=== PATIENT | female | born 1955 | race Caucasian/White ===

== ENCOUNTER → 2017-10-19 | Outpatient (CLI) | payer OTHER, SELFPAY ==
--- NOTE | 2017-10-23 09:15 | PM.TREADMILL ---
Cardiac Stress Test Report Referral & Results Date Patient Seen: 10/23/17 Time Patient Seen: 09:15 Requesting provider: Wes Lopez Indication: Hypertension Rest ECG: Unremarkable Procedure Note: After both written and verbal informed consent the patient had an IV started by the diagnostic imaging RN and then was hooked up to the treadmill monitoring system. The patient was placed on the treadmill at 1 mile an hour with no elevation and was then injected with the Shantel scan material. The Cardiolite was then immediately administered. The patient spent an additional 2-3 minutes on the treadmill before being returned to the [facility] in the supine position. The patient had a normal response to all infused materials. Patient experienced tingling and odd sensations in both arms and into her left neck and down the left side of her abdomen. These began to resolve prior to this is sedation of the monitoring portion of the test Otherwise patient had normal response to infuse materials Impression: Perfusion imaging to be reported separately, somewhat atypical symptoms produced by infusion of Lexiscan material but otherwise normal response to infuse materials. Please note: Actual ECG tracings can be found in the PACS system.
--- NOTE | 2017-10-23 16:45 | DI.NM.S_ITS ---
DATE OF SERVICE: 10/19/2017 ORDERING PROVIDER: Wes Lopez MD PROCEDURE PERFORMED: Vasodilator stress and rest myocardial perfusion imaging study with gating to assess ejection fraction and regional wall motion. INDICATIONS: The patient is a 62-year-old female with exertional dyspnea and edema. CARDIAC STRESS: Per protocol, 0.4 mg of regadenoson was infused, augmented by walking on the treadmill. With this, she had a normal hemodynamic response without any chest discomfort, although developed mild bilateral arm pain and left abdominal discomfort. Her resting ECG is normal and there are no ischemic changes or arrhythmias with stress. Per protocol, 25.7 mCi of technetium 99 Myoview was injected and the patient was imaged 15 minutes later using a gated SPECT acquisition protocol. Previously, the patient had been injected with 24.9 mCi of technetium 99 Myoview on 10/19/2017 and had been imaged 30 minutes after that injection. FINDINGS: 1. Raw Data: There is a fair amount of movement, particularly on the post stress which can introduce artifact. There were moderate breast shadows noted. The lung/heart ratio is normal at 0.37 with a normal TID ratio of .94. 2. Quantitative Gated SPECT: Post stress ejection fraction is estimated at 71% without any focal wall motion abnormality. Resting ejection fraction is 74% with an end-diastolic volume of 117 mL. 3. Myocardial Perfusion Imaging: Post stress supine images shows a fairly normal myocardial perfusion pattern was a very subtle defect at the base of the anterior wall, likely reflective of breast attenuation artifact. This appears to improve on the prone images. There are no other perfusion defects. The resting images shown identical perfusion pattern without any areas of improvement. CONCLUSION: 1. Probable normal myocardial perfusion study. 2. Mild fixed proximal anterior wall defect that essentially resolves on prone imaging, most consistent with breast attenuation artifact. There is no compelling evidence for myocardial ischemia or previous myocardial infarction. 3. Normal left ventricular systolic function without any focal wall motion abnormality. 4. Bilateral arm pain and abdominal discomfort with vasodilator stress but no angina or ECG evidence of ischemia. Krystal Wayne - PASTOR/sebastian/ doc#: [id number]/job#: [id number] dd: 10/23/2017 11:50:00 dt: 10/23/2017 16:32:00 DICTATING MD/COPIES TO: Raffi Deal MD; Wes Lopez MD COPIES MNE: SANA MEIER
== END ==
PROVIDERS: Family Provider Internal Medicine; PCP Internal Medicine; Visit Provider Internal Medicine
DX: I10 Essential (primary) hypertension (principal)
CPT/HCPCS: 78452; 93016; 93017; 93018; A9502; J2785

== ENCOUNTER → 2017-10-26 16:06 | Outpatient (CLI) | payer OTHER, SELFPAY ==
--- NOTE | 2017-10-26 | DI.CT.S_ITS ---
PROCEDURE: CT CHEST W CON INDICATIONS: COUGH TECHNIQUE: After the administration of intravenous contrast, 5 mm thick sections acquired from the pulmonary apices to the posterior costophrenic angles. 7 mm thick coronal and sagittal MIP reformats were acquired. For radiation dose reduction, the following was used: automated exposure control, adjustment of mA and/or kV according to patient size. COMPARISON: None. FINDINGS: Image quality: Excellent. Lungs and pleura: No acute air space opacities. No pleural effusions or pneumothorax. Central and peripheral airways are patent and normal in caliber. Mediastinum: Heart size is normal. No pericardial effusion. No mediastinal or hilar adenopathy by size criteria. Thoracic aorta and central pulmonary arteries are normal in size. Esophagus is normal in caliber. No hiatal hernia. Bones and chest wall: No suspicious bony lesions. No vertebral body compression fractures. No axillary or supraclavicular adenopathy by size criteria. Thyroid gland demonstrates multiple bilateral nodules, largest of which is in the right lobe measuring roughly 17 mm. Abdomen: Visualized upper abdominal solid organs appear normal. Upper abdominal bowel loops are normal in caliber. IMPRESSION: 1. No explanation for cough. 2. Bilateral thyroid nodules, which could be further assessed with ultrasound, if clinically indicated. Dictated by: Vanessa Pollock M.D. on 10/26/2017 at 16:41 Approved by: Vanessa Pollock M.D. on 10/26/2017 at 16:43
== END ==
PROVIDERS: Family Provider Internal Medicine; PCP Internal Medicine; Visit Provider Physician Assistant Medical
DX: R05 Cough (principal); E04.2 Nontoxic multinodular goiter
CPT/HCPCS: 71260; Q9967

== ENCOUNTER → 2017-11-06 16:06 | Outpatient (CLI) | payer OTHER, SELFPAY ==
--- NOTE | 2017-11-06 | DI.US.S_ITS ---
PROCEDURE: US THYROID INDICATIONS: MULTIPLE THYROID NODULES TECHNIQUE: Real-time scanning was performed of the thyroid gland, with image documentation. COMPARISON: None. FINDINGS: Right: Thyroid lobe measures 5.6 x 3.1 x 2.6 cm, and is homogeneous in echotexture. Left: Thyroid lobe measures 5.7 x 2.2 x 2.1 cm, and is homogenous in echotexture. Isthmus: 3.0 mm thick. Nodule number: 1 Location: Midright Size: 1.4 x 1.9 x 1.7 cm. Composition: Solid Echogenicity: Hypoechoic Shape: wider than tall. Margins: Smooth Echogenic foci: None Total points: 4 ACR TI-RADS category: Moderately suspicious Nodule number: 2 Location: Right mid Size: 1.4 x 1.3 x 1.2 cm. Composition: Predominantly solid Echogenicity: Hypoechoic Shape: wider than tall. Margins: Smooth Echogenic foci: Punctate echogenic foci. Total points: 7 ACR TI-RADS category: Highly suspicious Nodule number: 3 Location: Right inferior Size: 2.0 x 1.8 x 2.1 cm. Composition: Solid Echogenicity: Hypoechoic Shape: wider than tall. Margins: Smooth Echogenic foci: None Total points: 4 ACR TI-RADS category: Moderately suspicious Nodule number: 4 Location: Left mid Size: 1.3 x 1.6 x 1.7 cm. Composition: Solid Echogenicity: Hypoechoic Shape: wider than tall. Margins: Smooth Echogenic foci: Punctate echogenic foci Total points: 7 ACR TI-RADS category: Highly suspicious IMPRESSION: Bilateral thyroid nodules as above. Recommend sonographically directed fine needle aspiration involving the right # 2 nodule in the left # 4 nodule. Recommend continued followup as detailed below for the additional nodules. ACR TI-RADS definitions and recommendations: TI-RADS 1 (benign): 0 points. FNA not needed. TI-RADS 2 (not suspicious): 2 points. FNA not needed. TI-RADS 3 (mildly suspicious): 3 points. * FNA if 2.5 cm or larger, follow up if 1.5 cm or larger (at 1, 3, and 5 years). TI-RADS 4 (moderately suspicious): 4-6 points. * FNA if 1.5 cm or larger, follow up if 1 cm or larger (at 1, 2, 3, and 5 years). TI-RADS 5 (highly suspicious): 7 points or more. * FNA if 1 cm or larger, follow up if 0.5 cm or larger (every year for 5 years). Dictated by: Jack WOODS Interpreted: Billy Thompson MD on 11/06/2017 at 16:54 Approved by: Billy Thompson M.D. on 11/08/2017 at 11:53
== END ==
PROVIDERS: Family Provider Internal Medicine; PCP Internal Medicine; Visit Provider Physician Assistant Medical
DX: E04.2 Nontoxic multinodular goiter (principal)
CPT/HCPCS: 76536

== ENCOUNTER → 2017-11-13 13:51 | Outpatient (CLI) | payer OTHER, SELFPAY ==
--- NOTE | 2017-11-30 10:08 | PM.PFT.1 ---
Pulmonary Function Test Referral & Results Date Patient Seen: 11/13/17 Requesting provider: Mine Coker Indication: Cough Results: The spirometry demonstrates an FVC of 2.81 L which is 82% of predicted. The FEV1 was measured at 2.28 L which is 86% of predicted. The FEV1/FVC ratio was 81 which is 104% of predicted. Following the administration of bronchodilator there was no appreciable change. Lung volumes show an SVC of 3.06 L which is 97% of predicted. The diffusing capacity was measured at 25.37 which is 99% of predicted. Maximum voluntary ventilation was normal Interpretation: This study demonstrates potentially extremely mild obstructive lung disease based on minimal reduction an FEV 1 and slight concave shape to flow volume loop however this could also be interpreted as normal Clinical correlation suggested
== END ==
PROVIDERS: Family Provider Internal Medicine; PCP Internal Medicine; Visit Provider Physician Assistant Medical
DX: R05 Cough (principal)
CPT/HCPCS: 94010; 94060; 94726; 94729

== ENCOUNTER → 2017-11-26 14:04 | Outpatient (CLI) | payer OTHER, SELFPAY ==
--- NOTE | 2017-11-26 | PATH_ITS ---
Note [facility] Accession Number: [id number] TESTS RESULT FLAG UNITS REF RANGE LAB Clinician Provided Cytology Information No. of containers..01 ThinPrep Vial No. of containers..04 Previously Prepared Cytology Slide L THYROID NODULE DIAGNOSIS: 02 L THYROID NODULE NEGATIVE FOR MALIGNANT CELLS. SPECIMEN CONSISTS OF BENIGN FOLLICULAR CELLS, HEMOSIDERIN-LADEN MACROPHAGES, SCANT COLLOID AND BLOOD. THIS PATTERN IS CONSISTENT WITH AN ADENOMATOID NODULE. Pathologist ICD10: 02 E04.1 02 Lavelle Kruger MD, Pathologist NPI- [id number] Zafar Ruth, Yarn Skeins Examiner ([facility]) 01 30 CC, PINK, CLEAR Also received 2 alcohol fixed and 2 quick stained slides. /HKH FLAG LEGEND: L-Low Normal,H-High Normal,LL-Alert Low,HH-Alert High <-Panic Low,>-Panic High,A-Abnormal,AA-Critical Abnormal Performed at: 01 =Z [facility] [address], [place] [address] Kali Robison MD, 02 [facility] [address] [place] [id number] Vignesh Houston MD, Performed at: 01 [facility] [address], [place], [place] [id number] MD Kali Robison MD Phone: [phone]
--- NOTE | 2017-11-26 | DI.US.S_ITS ---
PROCEDURE: US FINE NEEDLE ASPIRATION INDICATIONS: BILATERAL THYROID NODULES TECHNIQUE: The indications, alternatives, benefits, risks, and complications of the procedure were explained to the patient. Written informed consent was obtained and placed in the chart. Real-time sonography was utilized to choose the site for percutaneous thyroid nodule sampling. The skin of the neck was prepped and draped in the usual sterile fashion. 1% lidocaine was infiltrated down to the site of interest. Serial hypodermic needles were then advanced into the site of interest under direct sonographic visualization, and serial needle aspirates were obtained. On site fire protection equipment technician confirmed the presence of adequate sample prior to procedure termination. The needles were then withdrawn; a bandage was applied to the procedure site. COMPARISON: [facility], [place], US THYROID, 11/06/2017, 16:15. FINDINGS: Sample site(s): Right mid thyroid lobe (labeled nodule #2 on comparison thyroid ultrasound of 11/06/17). Needle: 25 gauge. Number of passes: 6. Medications: 1% lidocaine for local anaesthesia. Complications: No further samples could be obtained due to patient discomfort and technical difficulty. Sample site(s): Left mid thyroid lobe (labeled nodule #4 on comparison thyroid ultrasound of 11/06/17). Needle: 25 gauge. Number of passes: 2. Medications: 1% lidocaine for local anaesthesia. Complications: No further samples could be obtained due to patient discomfort and technical difficulty. IMPRESSION: Successful ultrasound-guided bilateral thyroid nodule fine needle aspirations, with cytology results pending. Dictated by: Eddie Stewart M.D. on 11/26/2017 at 17:12 Approved by: Eddie Stewart M.D. on 11/26/2017 at 17:14
== END ==
PROVIDERS: Family Provider Internal Medicine; PCP Internal Medicine; Visit Provider Otolaryngology Facial Plastic Surgery
DX: E04.2 Nontoxic multinodular goiter (principal)
CPT/HCPCS: 10022; 76942

== ENCOUNTER → 2017-12-19 14:58 | Outpatient (CLI) | payer OTHER, SELFPAY ==
[2017-12-19 16:54] LABS: Add Manual Diff / Slide Review NO; Basophils Percent Auto 0.7 % (0-2); Eosinophils Percent Auto 1.6 % (2-4); Hematocrit 40.5 % (36-46); Hemoglobin 13.1 g/dL (12.0-16.0); Lymphocytes Percent Auto 20.2 % (25-40); Mean Corpuscular HGB Conc 32.4 % (30-36); Mean Corpuscular Hemoglobin 28.2 PG (26-34); Mean Corpuscular Volume 87.3 fL (80-100); Monocytes Percent Auto 7.8 % (3-14); Neutrophils Absolute Auto 5800 /uL (3000-5900); Neutrophils Percent Auto 69.7 % (50-75); Platelet Count 327 X10^3/uL (150-400); Red Blood Cell Count 4.64 X10^6/uL (4.0-5.2); White Blood Cell Count 8.3 X10^3/uL (4.5-11.0)
[2017-12-19 17:12] LABS: Carbon Dioxide 26 mmol/L (22-32); Chloride 105 mmol/L (98-107); HEMOLYSIS < 15 (0-50); Sodium 144 mmol/L (137-145)
== END ==
PROVIDERS: PCP Internal Medicine; Visit Provider Orthopaedic Surgery
DX: Z01.818 Encounter for other preprocedural examination (principal)
CPT/HCPCS: 36415; 80051; 85025

== ENCOUNTER 2018-01-11 06:07 | Inpatient (IN) | payer OTHER, SELFPAY ==
[2017-12-24 08:38] VITALS: BMI 43.9
[2018-01-11] VITALS (16 sets, daily range): BP systolic 101–163; BP diastolic 51–75; PULSE 52–90; RESP 11–27; TEMP 35.9–37.2; O2SAT 2–98; BMI 43.7
--- NOTE | 2018-01-11 06:48 | DI.RAD.S_ITS ---
PROCEDURE: XR KNEE RT 1TO2V INDICATIONS: post op TECHNIQUE: 2 view(s) of the knee acquired. COMPARISON: None. FINDINGS: Bones: Patient is status post knee joint arthroplasty. Hardware components are in expected positions. Visualized bony structures are intact. Soft tissues: Overlying postoperative changes are noted. IMPRESSION: Post surgical changes from right total knee arthroplasty with anatomic right knee alignment. Dictated by: Reyes Jose M.D. on 01/11/2018 at 10:36 Approved by: Reyes Jose M.D. on 01/11/2018 at 10:41
[2018-01-11] MEDS: PREGABALIN 75 MG CAPSULE PO (07:11)
[2018-01-11] MEDS: ACETAMINOPHEN 325 MG TABLET 975 MG PO ×3 (07:11→21:54)
[2018-01-11] MEDS: CELECOXIB 200 MG CAPSULE PO (07:11)
[2018-01-11] MEDS: DEXAMETHASONE 10 MG/ML VIAL 8 MG IV (07:45)
[2018-01-11] MEDS: ONDANSETRON 4 MG/2 ML INJ IV ×2 (07:45→15:35)
[2018-01-11] MEDS: LACTATED RINGERS 1,000 ML 42 ML IV (07:46)
[2018-01-11] MEDS: CEFAZOLIN 2 GM/100 ML FROZ.PIGGY IV ×3 (07:52→23:53)
--- NOTE | 2018-01-11 07:56 | PM.PREOP ---
Pre-operative Note Interval Note Pre-op Check: Yes History & Physical Reviewed by Physician and Yes Exam Performed Changes: No
--- NOTE | 2018-01-11 07:59 | P.OP_ITS ---
Operative Date/Time/Diagnoses Date of procedure: 01/11/18 Time of procedure: 09:32 Pre-op diagnosis: Right knee osteoarthritis Post-op diagnosis: same Procedure & Clinicians Procedure: Right total knee arthroplasty Same procedure as scheduled: Yes Indications: The patient presents today for total knee arthroplasty after failure of conservative treatment. The nature of the procedure including the risks and benefits, alternatives, postoperative course and expected outcome were discussed and all questions answered. Consent was obtained. Operative site confirmed and marked. Surgeon: Kali Borges Track Repair Worker: Mayra Anderson Anesthesia Type: General Operative Notes Findings: Severe osteoarthritis with varus alignment Closure Type: primary Specimen(s): none sent Implants & Drains: [employer] BCS: 5 femoral component, 4 tibial component, 10 mm BCS polyethylene tray and 35 mm x 9 mm round patella Applied: implant(s) Estimated Blood Loss (mL): 50 Blood products transfused: none Tourniquet time (min): 25 Procedure in detail: The patient was taken to the operative suite and placed under anesthesia. The patient was given prophylactic antibiotics prior to surgery. The patient was also given tranexamic acid, 1 g, just prior to surgery for postoperative hemostasis. The lateral knee was prepped and the joint injected with 20 mL of 1% Lidocaine with epinephrine. The knee was then prepped and draped in usual sterile fashion. The leg was exsanguinated with an Esmarch dressing and the tourniquet raised to 300 torr. A 15 cm anterior incision was made. Next a medial trivector arthrotomy was made. The extensor mechanism was marked to ensure accurate repair. Initial exposing dissection was carried out medially and laterally. The knee was then extended and the patellar thickness was measured and a cut made removing approximately 9 mm of bone with a goal of restoring normal patellar thickness. The patella was then sized and drilled. Some excess lateral bone was excised and the patellofemoral ligament released. The tourniquet was then released. The knee was then flexed and the [employer] femoral guide was placed. The anterior pins were placed and the distal rotation holes drilled. The distal cutting guide was placed and the templated distal femoral cut was made. The templating cutting block was then placed and the anterior, posterior and chamfer cuts made. The [employer] tibial guide was placed and the alignment checked along the axis of the proximal tibial with a reed. The proximal tibial cut was then made with an oscillating saw. All meniscus and bony debris was then removed. Flexion extension gaps were checked. There is still some medial tightness both in flexion and extension. This was corrected with percutaneous release of the MCL with an 18 gauge needle. The soft tissues were then injected with a combination of 20 mL of half percent Marcaine with epinephrine and 20 mL of Exparel. The trial components were then placed. The knee went into full extension and flexion beyond 120?. There was excellent medial- lateral balance throughout motion. Patellar tracking was excellent. The trial components were removed and size is confirmed for the final implants. The knee was then exsanguinated with an Esmarch dressing and the tourniquet reapplied for cementing. The knee was cleansed with Pulsavac irrigation and dried. The final components were cemented in with high viscosity vacuum mixed bone cement with antibiotics. The knee was held in extension and the patellar clamp until the cement had adequately cured. The knee was then irrigated with dilute Betadine solution. The extensor mechanism was closed with 5 interrupted #1 Vicryl sutures in 90 degrees of flexion. The joint was then injected with a combination of 1 g of tranexamic acid and 20 mL of quarter percent Marcaine with epinephrine. The subcutaneous tissue was closed with 2-0 Vicryl. The skin was closed with amrit and surgical adhesive. Aquacel dressing and Graham wrap were then applied. Complications: none Condition: stable Disposition: PACU Plan for aftercare: formerly [facility] protocol
--- NOTE | 2018-01-11 08:25 | SUR.OPER ---
Supine on padded OR bed. Pillow under head, arms secured on padded armboards <90 degree abduction. Safety belt across torso. Non-operative leg secured with tape over blanket over lower leg. Operative leg secured in [employer]/[place] positioner. Foam padded brace at thigh of operative leg.
[2018-01-11] MEDS: BUPIVACAINE 0.25% W/ EPI VIAL 50 ML INJ (08:33)
[2018-01-11] MEDS: BUPIVACAINE LIPOSOME 266 MG/20 ML VIAL INJ (08:34)
[2018-01-11] MEDS: POVIDONE-IODINE 15 ML, SODIUM CHLORIDE 0.9% 250 ML TOP (08:35)
[2018-01-11] MEDS: LIDOCAINE 1% W/EPI INJ 20 ML INJ (08:35)
--- NOTE | 2018-01-11 10:22 | SUR.PHASEI ---
Dr. Cortez notified, pt c/o sore throat, ok to give Cepacol lozenge. Also, discussed pt c/o chest pressure/pain in middle of sternum, mild dizziness. Denied nausea. VS stable. No other new orders.
[2018-01-11] MEDS: BENZOCAINE/MENTHOL 1 LOZ PKT 1 EACH PO (10:24)
--- NOTE | 2018-01-11 10:35 | SUR.PHASEI ---
Pt sitting up, feeding self ice. Reported normal bp range is 120s.
--- NOTE | 2018-01-11 10:55 | SUR.PHASEI ---
Called report to SAMANTHA Lincoln, but receiving nurse not available at this time. Pt denied pain in knee. Reported throat and mid chest pressure improving.
--- NOTE | 2018-01-11 11:17 | SUR.PHASEI ---
Pt transferred to the floor. Report to SAMANTHA Parker. VS stable. IV saline locked. Rt knee drsg cdi. Pt able to move rt leg slightly. Belongings bag and glasses/case with patient.
[2018-01-11] MEDS: LACTATED RINGERS 1,000 ML 125 ML IV ×2 (12:06→19:42)
[2018-01-11] MEDS: OXYCODONE IR 5 MG TABLET PO (13:05)
[2018-01-11] MEDS: HYDROMORPHONE 0.5 MG INJ IV (13:38)
--- NOTE | 2018-01-11 14:45 | PT.IIE ---
Current Diagnoses Pneumonia, unspecified organism (01/11/18) Chronic obstructive pulmonary disease, unspecified (01/11/18) Unilateral primary osteoarthritis, right knee (01/11/18) Personal history of other diseases of the respiratory system (01/11/18) Surgery Performed Operation Date: 01/11/18 07:45 Actual Procedures p Total Knee Arthroplasty(Right) - Kali Borges MD Surgical History (Last Updated 12/24/17 @ 09:32 by Shira Burrell, RN) H/O: (Acute) History of colonoscopy (Acute) History of esophagogastroduodenoscopy (EGD) (Acute) Medical History (Last Updated 12/31/17 @ 13:06 by Shira Burrell, RN) Barretts esophagus (Acute ~2001) Degenerative arthritis of right knee (Acute) Diastolic dysfunction (Acute ~03/08/15) Edema (Acute) GERD (gastroesophageal reflux disease) (Acute) Glaucoma (Acute) Hiatal hernia (Acute) History of anxiety (Acute) History of bronchitis (Acute) History of depression (Acute) History of migraine headaches (Acute) History of viral meningitis (Acute) Obstructive lung disease (Acute) PNA (pneumonia) (Acute ~2009) Postmenopausal (Acute) Thyroid nodule (Acute) Valvular heart disease (Acute) Physical Therapy Inpatient Evaluation/Re-Eval M1 PT/OT-IP Prior Functional Status Start: 01/11/18 16:59 Freq: NEEDED Status: Active Protocol: Document 01/11/18 14:45 AB (Rec: 01/11/18 17:20 AB [id number]) Medical Review Prior Functional Status Medical History Reviewed Yes Communication able to make needs known Mobility and Gait pt stated that she is independent with all mobilities and ambualtion without AD Social History Household Members spouse family other Living Arrangements House Number of Floors (Floors) Two Floors Number of Stairs To Enter/Railing? pt lives in a 2 level house with 1 flight of steps with bilateral rails to enter but pt will stay at her friends house ~ 2 days upon d/c before going back to her house and friend's house is one level without steps to enter. 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 PT-IP Current Condition Start: 01/11/18 16:59 Freq: NEEDED Status: Active Protocol: Document 01/11/18 14:45 AB (Rec: 01/11/18 17:20 AB [id number]) Physical Therapy Current Condition Current Condition Evaluation Date 01/11/18 Treatment Diagnosis s/p R TKA Onset Date 01/11/18 Weight Bearing Status Weight Bearing Status Weight Bear as Tolerated M3 PT-IP Subjective Start: 01/11/18 16:59 Freq: NEEDED Status: Active Protocol: Document 01/11/18 14:45 AB (Rec: 01/11/18 17:20 AB [id number]) Subjective Physical Therapy Visit Type Type Initial Evaluation Visit Start Time 14:45 Visit Stop Time 15:39 Total Visit Minutes 54 Number of DBA Visits 0 Physical Therapy Visit Comments Patient Comments pt agreeable to get up Therapy Pain Assessment Pain When Pain Assessed At Rest Pain Present Pain Present Pain Reported Location Rt Knee Intensity 1 Scale Used Numeric (1 - 10) Pain Management Techniques Apply Cold Re-positioning Timing of Activity with Medications M4 PT-IP Mobility and Gait Start: 01/11/18 16:59 Freq: NEEDED Status: Active Protocol: Document 01/11/18 14:45 AB (Rec: 01/11/18 17:20 AB [id number]) PT-Bed Mobility Assessment Supine to Sit Supine to Sit Standby Assistance Scooting Scooting to Edge of Bed Standby Assistance PT-Transfer Assessment Sit to and From Stand Sit to and from Stand Moderate Assistance 1 Person Assistance Use of Upper Extremities Equipment Transfer Assistive Device Gait Belt Front Wheeled Walker Orthotic/Prosthetic Devices or Brace: No Transfers Transfer Technique pt ambulated to the toilet using FWW Transfer Ability Level of Assist Moderate Assistance 1 Person Assistance Comments Mobility Comments BP in supine: 124/56 . pt sat on EOB requiring SBA. c/o nausea. BP: 136/104. pt requesting to use the toilet and completed sit to stand mod A and cues. pt requires cues for R quad activation and steadiness. pt ambulated to the toilet using FWW mod A and cues with slight R knee buckling. pt required mod A for controlled descent to the toilet. pt complete sit to stand from the toilet using grab bar mod A and cues and ambulated towards the chair. continues to c/o nausea. nurse informed. BP sitting on chair: 138/77. Pt positioned in chair. ice pack provided. call light and table placed within reach. Gait Assessment Gait Gait Assistance Required: Moderate Assistance 1 Person Assist Distance (Feet) 10 Able to Maintain Weight Bearing Status Yes During Gait Assistive Devices Assistive Device Gait Belt Front Wheeled Walker Orthotic/Prosthetic Devices or Brace: No Gait Deviations General Gait Pattern Antalgic Decreased Stride Length Decreased Feet Clearance Factors Limiting Gait Function Factors Limiting Gait Function Decreased Activity Tolerance Decreased Strength Limited Range of Motion Pain Poor Balance Poor Safety Awareness PT-Balance Assessment Sitting Balance and Reactions Static Sitting Balance Ability Good Dynamic Sitting Balance Ability Good Standing Balance and Reactions Static Standing Balance Ability Fair Dynamic Standing Balance Ability Poor Device Used FWW M5 PT-IP Objective Assessments Start: 01/11/18 16:59 Freq: NEEDED Status: Active Protocol: Document 01/11/18 14:45 AB (Rec: 01/11/18 17:20 AB [id number]) Orientation Orientation/Cognition Level of Alertness Alert Orientation Name Age Birthday Month Date Year Day of Week Place Situation Safety Awareness Understands Safety Issues Gross Range of Motion Lower Extremity ROM Assessment Right Impaired Impairments PROM R knee flexion: ~ 60 deg Strength Lower Extremity Strength Assessment Right Impaired Hip 4+/5 Knee 3+/5 Sensation Assessment Sensation Gross Sensation WNL M6 PT-IP Treatment Start: 01/11/18 16:59 Freq: NEEDED Status: Active Protocol: Document 01/11/18 14:45 AB (Rec: 01/11/18 17:20 AB [id number]) Physical Therapy Treatment Exercises Exercises Quad Sets Heel Slides Education Education Provided Precautions Weight Bearing Status Post-Op Packet Safety M7 PT-IP Assessment and Plan Start: 01/11/18 16:59 Freq: NEEDED Status: Active Protocol: Document 01/11/18 14:45 AB (Rec: 01/11/18 17:20 AB [id number]) PT Summary Assessment and Plan Potential Rehabilitation Potential Good Status of Condition at Evaluation Evolving Summary Impairments Pain ROM Strength Balance Coordination Sensation Tone Cognition Bed Mobility Transfers Gait Activity Tolerance Assessment Summary pt requiring mod A with mobility and d/c plan depending on progress and assistance at home. pt plans to go home and family to assist. caregiver training will be conducted when appropriate. will continue to assess. Goals Bed Mobility Goal Independent Transfer Goal Standby Assistance Front Wheeled Walker Gait Goal Standby Assistance Front Wheel Walker Gait Distance 150 Other Goals up/down 12 steps bilateral rails CGA Days to Meet Goals 3 Frequency of Treatment Frequency Of Treatment Twice a Day Treatment Plan Physical Therapy Treatment Plan Bed Mobility Training Transfer Training Gait Training Therapeutic Exercise Balance Retraining Post Op Education Discharge Planning Hot or Cold Pack Neuromuscular Re-ed Coordination Retraining Manual Therapy Other Recommendations and Next Treatment ambulation, stair climbing Focus Recommendations To Nursing Amount of Assist Needed 1 Person Assist Discharge Recommendations PT Discharge Recommendations Home with Assistance Outpatient PT
[2018-01-11] MEDS: IBUPROFEN 600 MG TABLET PO ×2 (14:50→23:59)
[2018-01-11] MEDS: hydrOXYzine pamoate 25 MG CAPSULE PO ×2 (16:18→22:18)
[2018-01-11] MEDS: OXYCODONE IR 10 MG TABLET PO ×3 (16:18→22:18)
--- NOTE | 2018-01-11 16:18 | PC.NURSE ---
DAy Shift- Pt arrived to unit at 1110 via bed. Pt A&OX4, oriented to call light and post op routines, pt and family at bedside asking if she will be discharged tonight. Wire Threader explained that she would be staying the night and discharge tomorrow after working with PT and meeting discharge criteria. Pt has numbness to BLE upon arrival, unable to flex at ankles or wiggle toes, able to bend at knee. Numbness slowly resolved and pain increased from 1-4/10. Prn oxycodone given at 1305. Pt had additional increase in pain and Dilaudid IV prn given at 1340 with good effect. Pt had intermittent cramping to right leg that became quite intense. 's office called and spoke with the die stamping press operator kermit Fiore'samara.
[2018-01-11] MEDS: LATANOPROST 0.005% OPHTH 2.5 ML 1 DROPS EYE-BOTH (21:52)
[2018-01-11] MEDS: ASPIRIN EC 81 MG TABLET PO (21:54)
[2018-01-12 00:54] VITALS: BP 133/68; PULSE 62; RESP 17; TEMP 36.9; O2SAT 97
[2018-01-12] MEDS: OXYCODONE IR 10 MG TABLET PO ×2 (03:26→07:56)
[2018-01-12 03:30] VITALS: BP 134/57; PULSE 60; RESP 20; TEMP 36.6; O2SAT 96
[2018-01-12 06:09] LABS: Hematocrit 32.6 % (36-46); Hemoglobin 10.8 g/dL (12.0-16.0)
--- NOTE | 2018-01-12 07:54 | PM.DS.1 ---
History of Present Illness Date Patient Seen: 01/12/18 Time Patient Seen: 07:36 Chief complaint: [id number] Narrative: Patient seen bedside s/p R. TKA POD #1. Patient is doing well, she is up ambulating to the bathroom and her pain is controlled. She would like to go home today. She will be staying with her sister for the first few days. She denies CP, SOB, calf pain, and N/V. Muscle cramps that patient was having yesterday have improved with the increased dose of Vistaril. Discharge Providers Date of admission: 01/11/18 06:07 Primary care physician: Wes Lopez MD Consults: 01/11/18 11:14 Consult to Discharge Planning Routine Comment: Consult to Physical Therapy Evaluate & Treat Comment: Physician Instructions: postop TKA protocol Consult to Respiratory Therapy Evaluate & Treat Comment: Physician Instructions: Evaluate and treat Discharge provider: Madhavi Montalvo PA-C Discharge Date: 01/12/18 Exam Vital Signs (past 8 hours): - 01/12/18 00:54 01/12/18 03:30 Temperature 98.4 F 97.9 F Pulse Rate 62 60 Respiratory Rate 17 20 Blood Pressure 133/68 134/57 L Pulse Oximetry 97 96 Oxygen Delivery Method Room Air Oxygen Flow Rate 0 Narrative Exam Narrative: WDWN NAD A&OX3. Dressing CDI, minimal redness/saturation. NVI in RLE. Calves are soft and compressible. Ambulating well with walker. Objective Labs Result Diagrams: 01/12/18 05:44 Labs: Laboratory Results - last 24 hr 01/12/18 05:44 Hgb 10.8 L Hct 32.6 L Discharge Plan Discharge Plan Patient Disposition: Home Discharge Med Rec/Prescriptions Prescriptions: New acetaminophen 325 mg Tablet 975 mg PO TID Qty: 0 RF: 0 aspirin 81 mg Tablet,Delayed Release (Dr/Ec) 81 mg PO BID Qty: 0 RF: 0 oxycodone 5 mg Tablet 5 mg PO Q3HR PRN (Reason: Pain, Moderate (4-6)) Qty: 0 RF: 0 hydroxyzine pamoate 25 mg Capsule 50 mg PO Q6HR PRN (Reason: Nausea) Qty: 0 RF: 0 Continue furosemide [Lasix] 20 MG tablet 40 mg PO QDAY Qty: 0 RF: 0 metoprolol succinate [Toprol XL] 25 MG tablet extended release 24 hr 12.5 mg PO QDAY Qty: 0 RF: 0 omeprazole 20 mg Capsule,Delayed Release(Dr/Ec) 20 mg PO DAILY RF: 0 cholecalciferol (vitamin D3) [Vitamin D3] 2,000 unit Capsule 6,000 unit PO DAILY RF: 0 latanoprost 0.005 % Drops 1 drp EYE-BOTH BEDTIME RF: 0 Follow up/Referrals: Kali Borges MD [Physician] - 01/18/18 2:00 pm (Appointment with Mayra Anderson PA-C at the [employer] [facility] office.) Provider Discharge Instructions Diet: Diet as Tolerated Activity: Weightbearing as tolerated, use walker until cleared by PT Cold/Heat Therapy: Apply ice to surgical area 20 minutes at a time at least hourly while awake. Skin/Wound/Dressing Care Report to your healthcare provider any signs of infection, such as:: chills, fever, night sweats, increased pain and unusual drainage Dressing: May remove Graham Wrap second day after surgery. Keep Aquacel dressing on until 2nd post-op visit. Visit Report/Discharge Packet Instructions: DI for Knee Replacement Discharge Data Primary Care Provider: Wes Lopez Attending Provider: Kali Borges Admit Date/Time: 01/11/18 06:07 Quality VTE Deep Vein Thrombosis/Pulmonary Embolism Present on Admission: No
[2018-01-12] MEDS: ACETAMINOPHEN 325 MG TABLET 975 MG PO (07:56)
[2018-01-12] MEDS: ASPIRIN EC 81 MG TABLET PO (07:57)
[2018-01-12] MEDS: FUROSEMIDE 20 MG TABLET 40 MG PO (07:57)
[2018-01-12 08:10] VITALS: BP 135/72; PULSE 54; RESP 20; TEMP 36.7; O2SAT 96
[2018-01-12] MEDS: hydrOXYzine pamoate 25 MG CAPSULE PO (08:16)
--- NOTE | 2018-01-12 10:09 | PC.NURSE ---
Aquacel with ANGELA wrap in place to right knee. Ice prn in place. Up to chair and BSC with 1 assist and walker. Tolerating well. Plan for P.T. this morning, patient staying at a family members house upon discharge that does not have stairs. Patient pleasant and talkative. Complaining of feeling quite sleepy after taking her medications this morning. Will continue to monitor, call light within reaceh.
--- NOTE | 2018-01-12 10:50 | PT.IPTN ---
Current Diagnoses Pneumonia, unspecified organism (01/11/18) Chronic obstructive pulmonary disease, unspecified (01/11/18) Unilateral primary osteoarthritis, right knee (01/11/18) Personal history of other diseases of the respiratory system (01/11/18) Surgery Performed Operation Date: 01/11/18 07:45 Actual Procedures p Total Knee Arthroplasty(Right) - Kali Borges MD Physical Therapy Treatment Note M2 PT-IP Current Condition Start: 01/11/18 16:59 Freq: NEEDED Status: Active Protocol: Document 01/11/18 14:45 AB (Rec: 01/11/18 17:20 AB [id number]) Physical Therapy Current Condition Current Condition Evaluation Date 01/11/18 Treatment Diagnosis s/p R TKA Onset Date 01/11/18 Weight Bearing Status Weight Bearing Status Weight Bear as Tolerated M3 PT-IP Subjective Start: 01/11/18 16:59 Freq: NEEDED Status: Active Protocol: Document 01/12/18 10:45 GGD (Rec: 01/12/18 12:15 GGD [email or web address]) Subjective Physical Therapy Visit Type Type Treatment Note Visit Start Time 10:05 Visit Stop Time 10:45 Total Visit Minutes 40 Number of PIPE PROCESSOR Visits 1 Physical Therapy Visit Comments Patient Comments Pt states she would like to try the stairs, but not need to use stair at D/C. Therapy Pain Assessment Pain When Pain Assessed At Rest Pain Present Pain Present Pain Reported Location Rt Knee Intensity 6 Scale Used Numeric (1 - 10) Pain Management Techniques Apply Cold M4 PT-IP Mobility and Gait Start: 01/11/18 16:59 Freq: NEEDED Status: Active Protocol: Document 01/12/18 10:45 GGD (Rec: 01/12/18 12:15 GGD [email or web address]) PT-Transfer Assessment Sit to and From Stand Sit to and from Stand Contact Guard Assistance Use of Upper Extremities Equipment Transfer Assistive Device Gait Belt Front Wheeled Walker Orthotic/Prosthetic Devices or Brace: No Transfers Transfer Destination Chair Wheelchair Transfer Ability Level of Assist Minimal Assistance Use of Upper Extremities Gait Assessment Gait Gait Assistance Required: Contact Guard Assist Distance (Feet) 60 Able to Maintain Weight Bearing Status Yes During Gait Assistive Devices Assistive Device Gait Belt Front Wheeled Walker Orthotic/Prosthetic Devices or Brace: No Gait Deviations General Gait Pattern Antalgic Decreased Stride Length Decreased Feet Clearance Factors Limiting Gait Function Factors Limiting Gait Function Decreased Activity Tolerance Decreased Strength Limited Range of Motion Pain Poor Balance Poor Safety Awareness Comments Gait Comments Pt need min cues for gait with FWW. Stair Climbing Assessment Comments Stair Climbing Comments trial of stairs, pt unable to tolerate right LE weight bearing due to pain. M5 PT-IP Objective Assessments Start: 01/11/18 16:59 Freq: NEEDED Status: Active Protocol: Document 01/11/18 14:45 AB (Rec: 01/11/18 17:20 AB [id number]) Orientation Orientation/Cognition Level of Alertness Alert Orientation Name Age Birthday Month Date Year Day of Week Place Situation Safety Awareness Understands Safety Issues Gross Range of Motion Lower Extremity ROM Assessment Right Impaired Impairments PROM R knee flexion: ~ 60 deg Strength Lower Extremity Strength Assessment Right Impaired Hip 4+/5 Knee 3+/5 Sensation Assessment Sensation Gross Sensation WNL M6 PT-IP Treatment Start: 01/11/18 16:59 Freq: NEEDED Status: Active Protocol: Document 01/12/18 10:45 GGD (Rec: 01/12/18 12:15 GGD [email or web address]) Physical Therapy Treatment Exercises Exercises Quad Sets Short Arc Quads Seated Knee Flexion/Extension Education Education Provided Weight Bearing Status Safety M7 PT-IP Assessment and Plan Start: 01/11/18 16:59 Freq: NEEDED Status: Active Protocol: Document 01/12/18 10:45 GGD (Rec: 01/12/18 12:15 GGD [email or web address]) PT Summary Assessment and Plan Summary Assessment Summary Pt improving with mobility. She was able to progress gait and improved with sit to stand . She had heavy use of UE on FWW with gait and poor tolerance to weight bearing. She was unable to tolerate weight bearing for stair mobility. Frequency of Treatment Frequency Of Treatment Twice a Day Treatment Plan Other Recommendations and Next Treatment ambulation, stair climbing Focus Recommendations To Nursing Amount of Assist Needed 1 Person Assist Discharge Recommendations PT Discharge Recommendations Home with Assistance Outpatient PT
[2018-01-12] MEDS: OXYCODONE IR 5 MG TABLET PO (12:05)
--- NOTE | 2018-01-12 12:22 | PC.NURSE ---
Discharge instructions and home care handout reviewed. Patient medicated prior to discharge for pain. Patient has ortho follow up scheduled. Instructed to call [facility] office with any questions or concerns. Escorted out via wheelchair by COMMUNITY SERVICE WORKER with all belongings.
== END 2018-01-12 12:23 | disposition home or self-care (01) | DRG 470 ==
PROVIDERS: Admitting Provider Orthopaedic Surgery; Family Provider Internal Medicine; PCP Internal Medicine; Visit Provider Orthopaedic Surgery
PROC: 0SRC0JZ Replacement of Right Knee Joint with Synthetic Substitute, Open Approach (ICD-10-PCS; CPT 27447; principal; 2018-01-11 07:45)
DX: M17.11 Unilateral primary osteoarthritis, right knee (principal); Z68.41 Body mass index [BMI] 40.0-44.9, adult; E66.9 Obesity, unspecified; R60.0 Localized edema
CPT/HCPCS: 36415; 73560; 85014; 85018; 97110; 97116; 97162; 97530; C1776; C9290; J0690; J1100; J1170; J2250; J2405; J2704

== ENCOUNTER → 2018-01-18 15:18 | Outpatient (CLI) | payer OTHER, SELFPAY ==
[2018-01-11 14:53] VITALS: BMI 43.7
--- NOTE | 2018-01-18 | DI.US.S_ITS ---
PROCEDURE: US PERIPH VENOUS LOW EXTREM RT INDICATIONS: RIGHT CALF SWELLING TECHNIQUE: Real-time imaging, as well as color and pulse Doppler interrogation, were performed of the lower extremity deep veins from the inguinal ligament to the popliteal fossa. COMPARISON: None. FINDINGS: The deep veins are normally compressible, and free of intraluminal thrombus. Color and pulse Doppler demonstrate normal phasic intraluminal flow. There is normal augmentation response to distal compression maneuver. IMPRESSION: No evidence of deep vein thrombosis of the right lower extremity. Dictated by: Junior Flores M.D. on 01/18/2018 at 15:30 Approved by: Junior Flores M.D. on 01/18/2018 at 15:30
== END ==
PROVIDERS: Family Provider Internal Medicine; PCP Internal Medicine; Visit Provider Orthopaedic Surgery
DX: M79.89 Other specified soft tissue disorders (principal)
CPT/HCPCS: 93971

== ENCOUNTER → 2023-01-03 13:05 | Outpatient (CLI) | payer OTHER, SELFPAY ==
[2018-01-11 14:53] VITALS: BMI 43.7
--- NOTE | 2023-01-03 13:08 | DI.MG.S_ITS ---
BILATERAL DIGITAL SCREENING MAMMOGRAM 3D/2D WITH CAD: 01/03/2023 CLINICAL: Routine screening. Family history of breast cancer. Comparison is made to exams dated: 03/01/2020 mammogram, 10/15/2018 mammogram, and 03/21/2017 mammogram - Outside facility. Both breasts are heterogeneously dense, which may obscure small masses (category c / 51-75% glandular tissue). Current study was also evaluated with a Computer Aided Detection (CAD) system. There is a possible developing asymmetry in the right breast middle depth superior region seen on the mediolateral oblique view only. No other significant masses, calcifications, or other findings are seen in either breast. IMPRESSION: INCOMPLETE: NEEDS ADDITIONAL IMAGING EVALUATION The possible developing asymmetry in the right breast is indeterminate. Additional views with possible ultrasound are recommended. Based on Tyrer-Cuzick model (a risk assessment model), the patient's lifetime risk is 23.7% and her 10 year risk is 12.0%. If a patient has an elevated risk, a more comprehensive evaluation should be considered and/or a referral to a genetic counselor. The [place] [employer], [place] [employer], and NCCN Guidelines advise the consideration of Breast MRI as an adjunct to screening mammography in patients whose Lifetime risk to develop breast cancer is 20% or higher. This exam was interpreted at Station ID: [id number]. NOTE: For mammograms, a report in lay terms will be sent to the patient. Approximately 15% of breast malignancies will not be visualized mammographically. In the management of a palpable breast mass, a negative mammogram must not discourage biopsy of a clinically suspicious lesion. Electronically Signed By: Kris Saxena M.D. slc/:01/04/2023 07:52:29 letter sent: Additional Imaging Needed ACR BI-RADS Category 0: Incomplete 3340F
== END ==
PROVIDERS: Family Provider Internal Medicine; PCP Nurse Practitioner Family; Referring Provider Nurse Practitioner Family; Visit Provider Nurse Practitioner Family
DX: Z12.31 Encounter for screening mammogram for malignant neoplasm of breast (principal); Z80.3 Family history of malignant neoplasm of breast
CPT/HCPCS: 77063; 77067

== ENCOUNTER → 2023-01-31 10:06 | Outpatient (CLI) | payer OTHER, SELFPAY ==
[2018-01-11 14:53] VITALS: BMI 43.7
--- NOTE | 2023-01-31 | DI.MG.S_ITS ---
UNILATERAL RIGHT DIGITAL DIAGNOSTIC MAMMOGRAM 3D/2D WITH ADDITIONAL VIEWS: 01/31/2023 CLINICAL: Additional evaluation requested from prior study. Comparison is made to exams dated: 03/01/2020 mammogram - Outside facility, 01/03/2023 mammogram - [facility], and 10/15/2018 mammogram - Outside facility. The right breast is heterogeneously dense, which may obscure small masses (category c / 51-75% glandular tissue). There is a possible developing asymmetry in the right breast middle depth superior region seen on the mediolateral oblique view only. No other significant masses or calcifications are seen in the breast. IMPRESSION: INCOMPLETE: NEEDS ADDITIONAL IMAGING EVALUATION The possible developing asymmetry in the right breast is indeterminate. An ultrasound is recommended. Based on Tyrer-Cuzick model (a risk assessment model), the patient's lifetime risk is 23.7% and her 10 year risk is 12.0%. If a patient has an elevated risk, a more comprehensive evaluation should be considered and/or a referral to a genetic counselor. The [place] [employer], [place], and NCCN Guidelines advise the consideration of Breast MRI as an adjunct to screening mammography in patients whose Lifetime risk to develop breast cancer is 20% or higher. This exam was interpreted at Station ID: [id number]. NOTE: For mammograms, a report in lay terms will be sent to the patient. Approximately 15% of breast malignancies will not be visualized mammographically. In the management of a palpable breast mass, a negative mammogram must not discourage biopsy of a clinically suspicious lesion. Electronically Signed By: Gianni Ayala M.D. lc/:01/31/2023 12:19:18 ACR BI-RADS Category 0: Incomplete 3340F
--- NOTE | 2023-01-31 | DI.US.S_ITS ---
LIMITED ULTRASOUND OF RIGHT BREAST: 01/31/2023 CLINICAL: Patient returns today to evaluate a focal asymmetry in the right breast. Comparison is made to exams dated: 01/31/2023 mammogram, 01/03/2023 mammogram - [facility], and 03/01/2020 breast MRI - Outside facility. Color flow and real-time ultrasound of the right breast were performed. No significant abnormalities were seen sonographically in the right breast. IMPRESSION: NEGATIVE There is no sonographic evidence of malignancy. There is no abnormality seen in the right breast to correspond with the mammography finding. Return to annual mammogram and a breast MRI screening schedule (due to elevated lifetime risk by TC model and dense breast tissue) are recommended. This exam was interpreted at Station ID: [id number]. Electronically Signed By: Gianni Ayala M.D. lc/:01/31/2023 12:20:57 letter sent: Normal Exam Ultrasound BI-RADS: 1 Negative
== END ==
PROVIDERS: Family Provider Internal Medicine; PCP Nurse Practitioner Family; Referring Provider Nurse Practitioner Family; Visit Provider Nurse Practitioner Family
DX: R92.2 Inconclusive mammogram (principal); N64.89 Other specified disorders of breast
CPT/HCPCS: 76642; 77065; G0279

== ENCOUNTER 2023-11-19 17:23 | Emergency (ER) | payer OTHER, SELFPAY ==
[2018-01-11 14:53] VITALS: BMI 43.7
[2023-11-19] VITALS (8 sets, daily range): BP systolic 165–194; BP diastolic 77–98; PULSE 57–68; RESP 13–18; TEMP 36.6; O2SAT 97–99; BMI 45.7
--- NOTE | 2023-11-19 17:34 | DI.RAD.S_ITS ---
PROCEDURE: XR CHEST 1V INDICATIONS: Shortness of breath TECHNIQUE: One view of the chest was acquired. COMPARISON: None. FINDINGS: Surgical changes and devices: None. Lungs and pleura: Lungs are clear. No pleural effusions or pneumothorax. Mediastinum: Mediastinal contours appear normal. Heart size is enlarged. Bones and chest wall: No suspicious bony lesions. Overlying soft tissues appear unremarkable. IMPRESSION: No acute cardiopulmonary pathology. Dictated by: Reyes Jose M.D. on 11/19/2023 at 18:01 Approved by: Reyes Jose M.D. on 11/19/2023 at 18:06
--- NOTE | 2023-11-19 17:40 | EKG_ITS ---
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
[2023-11-19 18:28] LABS: Add Manual Diff / Slide Review NO; Basophils Absolute Auto 100 /uL (0-100); Basophils Percent Auto 0.7 % (0-2); Eosinophils Absolute Auto 200 /uL (0-450); Eosinophils Percent Auto 2.2 % (2-4); Hematocrit 40.3 % (36-46); Hemoglobin 13.5 g/dL (12.0-16.0); Lymphocytes Absolute Auto 1700 /uL (1100-4500); Lymphocytes Percent Auto 21.1 % (25-40); Mean Corpuscular HGB Conc 33.6 % (30-36); Mean Corpuscular Hemoglobin 28.6 PG (26-34); Monocytes Absolute Auto 700 /uL (0-900); Monocytes Percent Auto 9.1 % (3-14); Neutrophils Absolute Auto 5400 /uL (1500-7000); Neutrophils Percent Auto 66.9 % (50-75); Platelet Count 327 X10^3/uL (150-400); Red Blood Cell Count 4.74 X10^6/uL (4.0-5.2); White Blood Cell Count 8.1 X10^3/uL (4.5-11.0)
--- NOTE | 2023-11-19 18:39 | ED_ITS ---
HPI - General Adult General Chief complaint: Hypertension Stated complaint: High BP Time Seen by Provider: 11/19/23 17:55 Source: patient Mode of arrival: Ambulatory History of Present Illness HPI narrative: Patient is a 68-year-old female without a prior history of hypertension who is here for evaluation of couple days of feeling fatigued and short of breath with exertion. No headache. No chest pain. No cough. Lying in the bed she was not short of breath. No lower extremity swelling. She states that she has been taking her blood pressure over the past couple days and has been elevated with a systolic blood pressure in the 170s to 200s. She did take it earlier today at [facility] of the drug stores and it was greater than 200s she came to the emergency department. She does have a appointment with Cardiology on Sunday. This is after discussion with her primary doctor. Related Data Home Medications Medication Instructions Recorded Confirmed furosemide 20 mg tablet (Lasix) 40 mg PO QDAY ##0 01/26/17 01/11/18 metoprolol succinate 25 mg 12.5 mg PO QDAY ##0 01/26/17 01/11/18 tablet,extended release 24 hr (Toprol XL) cholecalciferol (vitamin D3) 50 6,000 unit PO DAILY 12/24/17 01/11/18 mcg (2,000 unit) capsule (Vitamin D3) latanoprost 0.005 % eye drops 1 drp EYE-BOTH BEDTIME 12/24/17 01/11/18 omeprazole 20 mg capsule,delayed 20 mg PO DAILY 12/24/17 01/11/18 release Previous Rx's Medication Instructions Recorded acetaminophen 325 mg tablet 975 mg (3 x 325 mg) PO TID #0 tabs 01/12/18 aspirin 81 mg tablet,delayed 81 mg PO BID #0 tabs 01/12/18 release hydroxyzine pamoate 25 mg capsule 50 mg (2 x 25 mg) PO Q6HR PRN 01/12/18 Nausea #0 caps oxycodone 5 mg tablet 5 mg PO Q3HR PRN Pain, Moderate 01/12/18 (4-6) #0 tabs Allergies Allergy/AdvReac Type Severity Reaction Status Date / Time No Known Drug Allergies Allergy Verified 01/11/18 06:49 Review of Systems Review of Systems ROS Unobtainable: All systems reviewed & are unremarkable except as noted in HPI and below Patient History Medical History Diastolic dysfunction (~03/08/15) History of anxiety History of depression Hiatal hernia History of migraine headaches Glaucoma Obstructive lung disease Edema Postmenopausal History of bronchitis PNA (pneumonia) (~2009) Barretts esophagus (~2001) History of viral meningitis GERD (gastroesophageal reflux disease) Valvular heart disease Degenerative arthritis of right knee Thyroid nodule Surgical History (Updated 12/24/17 @ 09:32 by Shira Burrell RN) H/O: History of esophagogastroduodenoscopy (EGD) History of colonoscopy Social History household members: spouse and other Smoking Status: Never smoker alcohol intake: current Smoking Status: Never smoker alcohol intake frequency: a few times a week Substance Use Type: does not use Exam Initial Vital Signs Initial Vital Signs: Vital Signs Temperature 97.8 F 11/19/23 17:28 Pulse Rate 68 11/19/23 17:28 Respiratory Rate 18 11/19/23 17:28 Blood Pressure 194/88 H 11/19/23 17:28 Pulse Oximetry 98 11/19/23 17:28 Oxygen Delivery Method Room Air 11/19/23 17:28 Const General: cooperative, comfortable and No ill appearing HENMT Head: normal to inspection and normocephalic Resp Effort & Inspection: normal respiratory effort Auscultation: clear to auscultation bilaterally Cardio Rate: regular rate Rhythm: regular rhythm GI Inspection: normal to inspection and non-distended Extrem General: No edema Course Orders Ordered: ED Orders 11/19/23 17:34 XR chest 1V Stat EKG-12 Lead Stat Measure peak expiratory flow ONCE RT Consult Eval and Treat NOW 11/19/23 18:10 Complete Blood Count AUTO DIFF Stat Comprehensive Metabolic Panel Stat Troponin & CK Cardiac Panel Stat Vital Signs Vital signs: Vital Signs - 8 hr 11/19/23 17:28 11/19/23 18:17 11/19/23 18:22 Temperature 97.8 F Pulse Rate 68 59 L Respiratory Rate 18 16 Blood Pressure 194/88 H 188/86 H Pulse Oximetry 98 99 Oxygen Delivery Method Room Air 11/19/23 18:22 11/19/23 18:30 11/19/23 18:31 Temperature Pulse Rate 60 63 Respiratory Rate 18 13 Blood Pressure 187/98 H Pulse Oximetry 97 98 Oxygen Delivery Method Room Air 11/19/23 18:31 11/19/23 19:03 11/19/23 19:04 Temperature Pulse Rate 66 63 Respiratory Rate 16 Blood Pressure 165/77 H Pulse Oximetry 98 97 Oxygen Delivery Method 11/19/23 19:04 Temperature Pulse Rate 61 Respiratory Rate Blood Pressure Pulse Oximetry 98 Oxygen Delivery Method Room Air Medical Decision Making Lab Data Lab results reviewed: Yes I reviewed the patient's lab results. 11/19/23 18:10 11/19/23 18:10 Labs: Lab Results 11/19/23 11/19/23 Range/Units 18:10 18:10 WBC 8.1 (4.5-11.0) X10^3/uL RBC 4.74 (4.0-5.2) X10^6/uL Hgb 13.5 (12.0-16.0) g/dL Hct 40.3 (36-46) % MCV 85.0 (80-100) fL MCH 28.6 (26-34) PG MCHC 33.6 (30-36) % RDW 14.0 (11.6-14.8) % Plt Count 327 (150-400) X10^3/uL Neut % (Auto) 66.9 (50-75) % Lymph % (Auto) 21.1 L (25-40) % [place] % (Auto) 9.1 (3-14) % Eos % (Auto) 2.2 (2-4) % Baso % (Auto) 0.7 (0-2) % Neut # (Auto) 5400 (4608-9824) /uL Lymph # (Auto) 1700 (8971-2461) /uL [place] # (Auto) 700 (0-900) /uL Eos # (Auto) 200 (0-450) /uL Baso # (Auto) 100 (0-100) /uL Sodium 135 L (137-145) mmol/L Potassium 3.8 (3.4-5.1) mmol/L Chloride 103 (98-107) mmol/L Carbon Dioxide 25 (22-32) mmol/L BUN 10 (7-17) mg/dL Creatinine 0.66 (0.52-1.04) mg/dL Estimated GFR > 60 (>60) mL/min BUN/Creatinine Ratio 15.2 (6-22) Glucose 99 (80-110) mg/dL Calcium 9.3 (8.4-10.2) mg/dL Total Bilirubin 0.6 (0.2-1.3) mg/dL AST 29 (14-36) IU/L ALT 34 (<35) IU/L Alkaline Phosphatase 116 (38-126) U/L Total Creatine Kinase 54 (30-135) U/L Troponin I Cancelled < 0.012 NT-Pro-B Natriuret Pep Cancelled Total Protein 7.3 (6.3-8.2) g/dL Albumin 4.0 (3.5-5.0) g/dL Globulin 3.3 (1.7-4.1) g/dL Albumin/Globulin Ratio 1.2 (1.0-2.8) Imaging Data Chest x-ray: Radiologist's Impression: PROCEDURE: XR CHEST 1V INDICATIONS: Shortness of breath TECHNIQUE: One view of the chest was acquired. COMPARISON: None. FINDINGS: Surgical changes and devices: None. Lungs and pleura: Lungs are clear. No pleural effusions or pneumothorax. Mediastinum: Mediastinal contours appear normal. Heart size is enlarged. Bones and chest wall: No suspicious bony lesions. Overlying soft tissues appear unremarkable. IMPRESSION: No acute cardiopulmonary pathology. ECG Data Attestation: I personally reviewed and interpreted this ECG as follows: Interpretation: Sinus rhythm Ventricular rate 60 Normal axis Normal QRS Normal QTC No ST T wave changes MDM Narrative Medical decision making narrative: Blood pressures improved significantly here in the ER without specific intervention. Patient is not clinically in heart failure. Low suspicion for intracranial hemorrhage. Low suspicion for ACS. Not in renal failure. Had a discussion with her regarding options to include starting blood pressure medications today versus waiting until her appointment on Sunday with her furniture finisher helper. She opted to wait until Sunday. We also discussed the importance of checking her blood pressure at home and specific return precautions. She expressed understanding and agreement with plan. Discharge Plan Departure Patient Disposition: Home Clinical Impression: Hypertension Instructions: DI for High Blood Pressure Activity Restrictions/Additional Instructions: Recommend that you continue to take all of your medications as directed. Recommend that you keep your scheduled appointment with your furniture finisher helper on Sunday. Return to the emergency department for new or worsening symptoms. Prescriptions: No Action furosemide [Lasix] 20 MG tablet 40 mg PO QDAY Qty: 0 metoprolol succinate [Toprol XL] 25 MG tablet extended release 24 hr 12.5 mg PO QDAY Qty: 0 omeprazole 20 mg Capsule,Delayed Release(Dr/Ec) 20 mg PO DAILY cholecalciferol (vitamin D3) [Vitamin D3] 2,000 unit Capsule 6,000 unit PO DAILY latanoprost 0.005 % Drops 1 drp EYE-BOTH BEDTIME acetaminophen 325 mg Tablet 975 mg PO TID Qty: 0 0RF aspirin 81 mg Tablet,Delayed Release (Dr/Ec) 81 mg PO BID Qty: 0 0RF oxycodone 5 mg Tablet 5 mg PO Q3HR PRN (Reason: Pain, Moderate (4-6)) Qty: 0 0RF hydroxyzine pamoate 25 mg Capsule 50 mg PO Q6HR PRN (Reason: Nausea) Qty: 0 0RF Referrals: Nancy Espinoza ARNP [Primary Care Provider] - Stand Alone Forms: Patient Portal/API
[2023-11-19 18:44] LABS: Alanine Aminotransferase 34 IU/L (<35); Albumin Globulin Ratio 1.2 (1.0-2.8); Alkaline Phosphatase 116 U/L (38-126); Aspartate Aminotransferase 29 IU/L (14-36); BUN Creatinine Ratio 15.2 (6-22); Bilirubin Total 0.6 mg/dL (0.2-1.3); Blood Urea Nitrogen 10 mg/dL (7-17); Calcium 9.3 mg/dL (8.4-10.2); Carbon Dioxide 25 mmol/L (22-32); Chloride 103 mmol/L (98-107); Creatine Kinase 54 U/L (30-135); Estimated Glomerular Filt Rate > 60 mL/min (>60); Globulin 3.3 g/dL (1.7-4.1); Glucose 99 mg/dL (80-110); HEMOLYSIS < 15 (0-50); Potassium 3.8 mmol/L (3.4-5.1); Sodium 135 mmol/L (137-145); Total Protein 7.3 g/dL (6.3-8.2)
[2023-11-19 18:55] LABS: Troponin I < 0.012 ng/mL (0.01-0.034)
--- NOTE | 2023-11-19 19:09 | PC.NURSE ---
pt aao x 2, resting on stretcher states she is feeling better discussed with pt how stress factors can affect bp, pt states she has had a great deal of stress at work
== END 2023-11-19 19:50 | disposition home or self-care (01) ==
PROVIDERS: Student in an Organized Health Care Education/Training Program; Emergency Provider Emergency Medicine; Family Provider Internal Medicine; PCP Nurse Practitioner Family
DX: I10 Essential (primary) hypertension (principal); R06.02 Shortness of breath
CPT/HCPCS: 36415; 71045; 80053; 82550; 84484; 85025; 93005; 99283; 99284